=== PATIENT | female | born 1955 | race Caucasian/White ===

== ENCOUNTER 2016-05-04 07:20 | Inpatient (IN) | payer OTHER ==
--- NOTE | 2016-04-13 15:01 | NUR ---
JOINT CAMP: Patient attended Joint Camp at [facility], patient is coming in on 05/04/16 for right total hip replacement. Patient does have a DPOA in place and it is her Kaushik Leung, home # [phone] cell# [phone]. Her will be the one to assist post discharge and he will be the one to transport home on day of discharge. Patient has never has home health or SNF services but has been connected with outpatient therapy. Patient currently has no DME at home.
[~2016-05-04] VITALS: Ht 175.3 cm; Wt 79.0 kg
[2016-05-04] VITALS (21 sets, daily range): BP systolic 88–140; BP diastolic 51–82; PULSE 46–80; RESP 8–21; O2SAT 92–100
[2016-05-04] MEDS: Lactated Ringer's 1,000 ML IV SCH ×4 (05:38→17:05)
[~2016-05-04 07:20] MED LIST: ASPI325T32 PO; CeFAZolin Inj 2 GM in Dextrose 5% 50 ML IV ONE; ENAL10TA PO; MELO-259 PO; Vancomycin 1 Gm/200 mL NS Premix IV ONE; [UNRECOGNIZED DRUG - CODE] PO
--- NOTE | 2016-05-04 07:31 | PCM.HPANE ---
Patient Data Surgeon Admitting Provider: Attending Provider:Abel Lay DO Primary Care Physician:Fei Saab MD Other Provider:Kaleb Sears Anesthesia Reason for Visit Right Hip Arthritis Ht/WT & BMI Height (Feet): 5 Height (Inches): 7 Weight (Kilograms): 77.02 Body Mass Index 26.00 Allergies Coded Allergies: morphine (Verified Allergy, Unknown, room spins, 05/03/16) Past Anesthesia History Anesthesia History: Denies:: Abnormal Airway, Anesthesia Reactions, Difficult Intubation, Fam Anesthesia Reaction Diabetes History Hx Diabetes?: No (gestational diabetes 1995) MRSA MRSA: No Medications Hypertension Medication: Yes Home Meds Incl Beta Zoey: No Reported Medications Guaifen/Phenyleph/Acetaminophn (Tylenol Sinus Severe Caplet)200 Mg-5 Mg-325 Mg Tablet1 Each PO HS 05/03/16 Meloxicam 7.5 Mg Tablet7.5 Mg PO BID 30 Days Ref 0 05/03/16 Enalapril Maleate 10 Mg [id number] Mg PO DAILY Ref 0 05/03/16 Aspirin 325 Mg [id number] Mg PO DAILY #1 BOTTLE 05/03/16 History History of ENT Problems?: No HEENT History: Denies:: Abnormal Airway Cataracts Difficult Intubation Dysphagia Glaucoma Hearing Problem Sinus Problem (post nasal drip allergies) TMJ Hx of Heart Problems?: Yes Cardiovascular History: Positive for:: Heart Murmur Hypertension Denies:: Abdominal Aortic Aneurism Atrial Fibrillation Cardiac Surgery Chest Pain Congestive Heart Failure Coronary Artery Disease Edema Irregular Heartbeat Rheumatic Fever Valvular Heart Disease Hx of Respiratory Problem?: No Respiratory History: Denies:: Asthma COPD Emphysema Oxygen Administration Pneumonia Tuberculosis Use of C-PAP Machine Use of Inhalers / NEBS Hx Neurologic Problems?: No Neurological History: Denies:: Alzheimer's Disease CVA Dementia Dizziness Headaches Multiple Sclerosis Parkinson's Disease Seizures TIA Hx of GI Problems?: Yes Gastrointestinal History: Positive for:: Gastroesphageal Reflux (periodically ) Heartburn Denies:: Cirrhosis Diverticulitis Gall Bladder Disease Gastrointestinal Bleeding Hepatitis Hiatal Hernia Liver Disease Rectal Bleeding Hx of Problems?: No Genitourinary History: Denies:: Kidney Stones Urinary Tract Infection Female Hx: Denies:: Currently Problems with Breasts? Skin History: Denies:: History Skin Disorders? Pressure Ulcers Hx Musculoskeletal Problems?: Yes Musculoskeletal History: Positive for:: Musculoskeletal Trauma (right hip current admission problem) Osteoarthritis Denies:: Back Injury (low back pain) Degenerative Joint Fibromyalgia Joint Replacement Myasthenia Gravis Rheumatoid Arthritis Systemic Lupus Hx of Psycho/Social Problems?: No Psycho Social History: Denies:: Anxiety Hx Depression Hx Surgeries?: Yes (left knee acl, umb hernia, rt rotator cuff) Hx Any Other Health Problems?: Yes Other History: Denies:: Cancer Thyroid Disease History Blood Transfusions: Positive for:: Accept Blood Products? Denies:: Blood Transfusions Hx Diabetes: No (gestational diabetes 1995) Hx Alcohol Use: YesAlcoholic Drinks Per Day: 3 drinks weekly (if that)Hx Substance Use: NoHave You Smoked inLast 12 mo: No Stop/Bang S-Snoring: Do You Snore Loudly: No T-Tired: feel tired, fatigued: No O-Obsered: Observed not breath: No P-Blood Pressure: treated: Yes B- Body Mass Index > 35 kg/m2: No A- Age over 50: Yes N- Neck Large Circumference: No G- Gender Male: No MIKI Total Score: 2 MIKI Risk Assessment: Low Risk, <3 Yes Risk Assessment Category Category 1A: Patient has history of documented sleep apnea, and HAS NOT received any narcotic, sedative or anesthesia administration during this stay. Category 1B: Patient has history of documented sleep apnea, and HAS received any narcotic , sedative or anesthesia administration during this stay Category 2: Patient has SUSPECTED Obstructive Sleep Apnea, and HAS received any narcotic , sedative or anesthesia administration during this stay. Category 3: Patient has SUSPECTED Obstructive Sleep Apnea and HAS NOT received narcotic, sedative or anesthesia administration during this stay. Category 4: Outpatient in Procedural Areas with known sleep apnea or who screen positive for High Risk via the STOP/BANG questionnaire. Exam Exam General Appearance: Alert, Oriented X3, Cooperative, No Acute Distress HEENT/AIRWAY: MP 2 Lungs: Clear to Auscultation, Normal Air Movement Heart: Exam Unremarkable, Regular Rate/Rhythm, No Murmurs/Rubs/Gallops Meds/Labs/Diagnostics Admission Meds Current Medications Lactated Ringer's (Lr) 1,000 ml @ 120 mls/hr [id number] IV Last administered on t 05:38; Start 05/04/16 at 05:00; Stop 05/04/16 at 13:19 Plan Impression Patient chart reviewed, patient interviewed and anesthestic plan with risks, benefits, and alternatives discussed, and informed consent obtained. ASA Physical Status: ASA2 Mod Systemic Disease Anesthetic Plan: SAB Bene/Risks/Altern/Consents: Yes HP Complete Prior to Induction: Yes Chanel Martinez MD May 04, 2016 07:31
[2016-05-04] MEDS ORDERED: Lactated Ringer's 1,000 ML IV SCH (10:06)
[2016-05-04] MEDS ORDERED: Lactated Ringer's 500 ML IV PRN (10:06)
[2016-05-04] MEDS ORDERED: Dexamethasone 4 mg/mL Inj IVPUSH PRN (10:10)
[2016-05-04] MEDS ORDERED: Labetalol 5 mg/mL 4 mL Inj IV PRN (10:10)
[2016-05-04] MEDS ORDERED: fentaNYL-PF 50 mCg/mL 2 mL Inj IVPUSH PRN (10:10)
[2016-05-04] MEDS ORDERED: hydrALAZINE 20 mg/mL Inj IVPUSH PRN (10:10)
[2016-05-04] MEDS ORDERED: MetoCLOpramide 5 mg/mL 2 mL Inj IVPUSH PRN (10:10)
[2016-05-04] MEDS ORDERED: Atropine 0.4 mg/mL Inj IVPUSH PRN (10:10)
[2016-05-04] MEDS ORDERED: Ondansetron 2 mg/mL 2 mL Inj IVPUSH PRN ×2 (10:10→12:20)
[2016-05-04] MEDS ORDERED: HYDROmorphone 1 mg/mL Inj IVPUSH PRN ×3 (10:10→15:20)
[2016-05-04] MEDS ORDERED: Phenylephrine 10,000 mCg/mL Inj IVPUSH PRN (10:10)
[2016-05-04] MEDS ORDERED: EPHEDrine Sulfate 50 mg/mL Inj IVPUSH PRN (10:10)
[2016-05-04] MEDS ORDERED: Ropivacaine-PF 0.5% 30 mL Inj INFILTRATE ONE (10:27)
[2016-05-04] MEDS ORDERED: Polyethylene Glycol (PEG) 17 Gm Powder PO PRN (12:20)
[2016-05-04] MEDS ORDERED: diphenhydrAMINE 25 mg Capsule PO PRN (12:20)
[2016-05-04] MEDS ORDERED: Acetaminophen IV 1,000 MG in IV Premix 1 EACH IV PRN (12:20)
[2016-05-04] MEDS ORDERED: Magnesium Hydroxide 10 mL Oral Concentration PO PRN (12:20)
[2016-05-04] MEDS ORDERED: Phenylephrine/NS-PF 100 mCg/mL 5 mL Syringe IVPUSH ONE (13:21)
--- NOTE | 2016-05-04 13:35 | PCM.ANEP1 ---
Post Anesthesia Phase 1 PACU Phase 1 Assessment Vital Signs Vital Signs Date Time Temp Pulse Resp B/P Pulse Ox O2 Delivery O2 Flow Rate FiO2 05/04/16 13:32 54 9 120/62 100 Nasal Cannula 3 05/04/16 13:26 46 18 104/56 100 Nasal Cannula 3 05/04/16 13:19 69 16 88/54 92 Room Air 05/04/16 13:15 21 95 05/04/16 13:11 66 8 91/51 97 Room Air 05/04/16 13:07 69 8 93/58 100 Room Air 05/04/16 12:41 76 15 119/68 96 05/04/16 12:35 80 15 121/82 97 05/04/16 12:30 36.4 75 17 115/71 95 Room Air 05/04/16 08:06 36.5 77 16 140/72 99 Room Air Anesthetic Administered: SAB Level of Alertness: Awake, talking TOLEDO's with Equal Strength: No Pain: No Nausea or Vomiting: No Oxygen Delivery: Room Air Lungs: Clear to Auscultation, Normal Air Movement Dermatome Level: T12 (Symphysis Pubis) Chanel Martinez MD May 04, 2016 13:35
--- NOTE | 2016-05-04 14:01 | PCM.ANEP2 ---
Post Anesthesia Evaluation ASA/CMS Post Anesthesia VS in Patient's Normal Range?: Yes Resp Stable; Airway Patent?: Yes CV Function & Hydration Stable: Yes Mental Status Recovered?: Yes Pain control Satisfactory?: Yes N/V Control Satisfactory?: Yes Chanel Martinez MD May 04, 2016 14:00
--- NOTE | 2016-05-04 14:05 | DRSVH ---
PROCEDURE: X-RAY PELVIS W/LAT HIP (RT) ([id number]) INDICATIONS: post op TECHNIQUE: AP pelvis with lateral view(s) of the right hip(s). COMPARISON: [facility], , XR PELVIS W LATERAL HIP RT, 04/19/2016, 15:39. FINDINGS: Bones: No fractures or dislocations. Status post right hip arthroplasty with overlying postoperative changes Pelvic ring appears intact. No suspicious bony lesions. Moderate to severe left hip joint degeneration Soft tissues: The visualized bowel gas pattern is normal. No suspicious soft tissue calcifications. IMPRESSION: Expected postoperative appearance Dictated by: Pacheco Rai M.D. on 05/04/2016 at 14:03 Approved by: Pacheco Rai M.D. on 05/04/2016 at 14:04
[2016-05-04] MEDS: HYDROcodone-APAP 7.5-325 mg Tablet PO PRN ×2 (15:00→21:16)
[2016-05-04] MEDS ORDERED: Glycopyrrolate 0.2 mg/mL 5 mL Inj ONE (16:17)
[2016-05-04] MEDS ORDERED: fentaNYL-PF 50 mCg/mL 2 mL Inj ONE (16:17)
[2016-05-04] MEDS ORDERED: Phenylephrine/NS 100 mCg/mL 10 mL Syringe IVPUSH ONE (16:17)
[2016-05-04] MEDS: 0.9% Sodium Chloride 1,000 ML IV SCH (17:03)
[2016-05-04] MEDS: CeFAZolin Inj 2 GM in IV Premix 1 EACH IV SCH (18:12)
--- NOTE | 2016-05-04 19:13 | NUR ---
POST OP PATIENT RECEIVED TO ROOM 1004 S/P RIGHT TOTAL HIP . PT UP WITH PHYSICAL THERAPY TO BSC DID BECAME LIGHT HEADED BUT THIS PASSED AND WAS ABLE TO SIT ON BSC TO VOID. PT UNDERSTANDS HIP PRECAUTIONS. PT DECLINED PAIN MED WHEN OFFERED STATED WILL TAKE SOME LATER THIS EVENING. BULKY DRESSING NOTED TO RIGHT HIP CDI.
[2016-05-04] MEDS: Senna-Docusate 8.6-50 mg Tablet PO SCH (21:16)
--- NOTE | 2016-05-04 23:16 | OP ---
[address] [address] OPERATIVE REPORT PATIENT: HIEN DOLAN : 1955 MR#: [id number] ADMIT: 05/04/2016 JOB ID: [id number] DATE OF SURGERY: 05/04/2016 PREOPERATIVE DIAGNOSIS(ES): Right hip degenerative joint disease. POSTOPERATIVE DIAGNOSIS(ES): Right hip degenerative joint disease. PROCEDURE: Right total hip arthroplasty. SURGEON: Abel Lay DO. CELLULAR PHONE REPAIRER: 1. Juanita Queen PA-C. 2. Hyacinth Isabel DO. INDICATIONS: The patient is a 61-year-old female with right hip severe degenerative arthritis with [id number] arthritis in the hip, who wished to proceed with total hip arthroplasty. We discussed the risks, benefits and possible complications of surgery including, but not limited to, injury to nerves and vessels, infection, bleeding, incomplete relief of symptoms stiffness need for additional procedures, hip dislocation, deep venous thrombosis. All questions were answered. She wished to proceed. A surgical technologist was required for the successful completion of this procedure. PROCEDURE: Patient was brought to the operating room. She was given preoperative spinal anesthetic and preop antibiotics, as well as 1 g TXA prior to the incision. Placed comfortably into the lateral decubitus position. The right hip was sterilely prepped and draped. An incision was made centered over the greater trochanter inline with the femur. Dissection was carefully carried through the subcutaneous tissue. Electrocautery was used for hemostasis. A split was then made in the iliotibial band inline with the skin incision and the Charnley retractor was then placed. A split was then made in the gluteus medius between the junction of the anterior 1/3 and posterior 2/3, and the Hohmann retractors were placed on either side of the femoral neck. Next, an anterior sleeve of tissue was released off of the neck leaving a cuff of tissue for repair. This was taken to a point just distal to vastus tubercle. A small triangular portion of capsule was removed and the hip was then dislocated. A provisional neck cut was made about a fingerbreadth above the level of lesser trochanter and preparation of the femur was begun with a box osteotome. This was then sequentially broached up to a size 9 Biomet Taperloc stem with reduced distal diameter. We then moved to the acetabulum and anterior and posterior acetabular retractors were placed. The pulvinar and labrum were removed and the acetabulum was then reamed sequentially from a 43 up to a 51. We trialed with a 51, which seemed to fit quite nicely. Care was taken to ensure the appropriate abduction and anteversion; and therefore, I elected to place a size 52 Biomet G7 cup. The bony acetabulum was washed and the G7 cup was impacted into position. Care was taken to ensure the appropriate abduction and anteversion, and a single screw was placed superiorly in order to aid with initial fixation. I used a 15 mm screw. We then trialed the hip with the 32 liner and 9 stem, however, I felt that her leg was a bit short and there was excessive shuck; therefore, we went up to a size 10 stem and with 0/32 neck this seemed to work quite nicely, allow for full range of motion, excellent stability and equal leg lengths. The wound was irrigated and the Biomet vitamin E 32 poly was impacted into position, followed by the reduced diameter size 10 Tri-Lock stem and the ceramic 32 + 0 neck the hip was reduced. Had excellent stability and the wound was again irrigated, and then the second gram of TXA was started. The wound was closed with #5 Ethibond to repair the capsule. The gluteus medius was then repaired with mattress #5 Ethibond sutures and #1 Surgilon. The vastus lateralis was repaired with #1 Surgilon. The iliotibial band was repaired with #1 Surgilon and 0-Vicryl. The subcu was closed with 2-0 Vicryl and 2-0 V-Loc, followed by a 3-0 V-Loc for subcuticular. Steri-Strips were used and sterile dressings were applied, including silver dressing. Patient tolerated the procedure well. Blood loss was 100 cc. POSTOP PROTOCOL: Have the patient weightbear to tolerance, use a walker for ambulation. Avoid any active abduction for six weeks. Will plan to use aspirin for DVT prophylaxis and [place] for pain control.
[2016-05-05] MEDS: 0.9% Sodium Chloride 1,000 ML IV SCH ×3 (00:03→18:18)
--- NOTE | 2016-05-05 01:23 | NUR ---
Pain Pt c/o incisional pain rated at a 5 Given IV toradol. Ice in place to incision area on right hip Pt currently resting quietly. No complaint of pain. Care ongoing
[2016-05-05] MEDS: CeFAZolin Inj 2 GM in IV Premix 1 EACH IV SCH (01:31)
[2016-05-05] MEDS: HYDROcodone-APAP 7.5-325 mg Tablet PO PRN ×5 (03:03→21:18)
[2016-05-05 06:02] VITALS: BP 123/66; PULSE 75; RESP 17; O2SAT 96
[2016-05-05 06:31] LABS: BASOPHILS % (AUTO) 0.1 % (0-3); EOSINOPHILS % (AUTO) 0.2 % (0-5); MONOCYTES % (AUTO) 12.5 % (4-12); Mean Corpuscular Hemoglobin 29.9 pg (27.0-35.0); Mean Corpuscular Volume 92.8 fL (81-100); NEUTROPHILS % (AUTO) 70.7 % (40-74); Platelet Count 262 bil/L (150-400)
[2016-05-05] MEDS: Senna-Docusate 8.6-50 mg Tablet PO SCH ×2 (08:10→21:16)
[2016-05-05 09:21] VITALS: BP 121/71; PULSE 81; O2SAT 94
--- NOTE | 2016-05-05 13:02 | NUR ---
Transfer status Patient ambulated with PT and sat up in the chair for approx. 15 minutes She requested pain medication prior to using BSC and ambulating Pain meds were effective in lowering pain level She is able to stand-pivot to BSC using FWW Care ongoing
--- NOTE | 2016-05-05 14:23 | PCM.PNORTH ---
Subjective Date of Service: May 05, 2016 Visit Information: Reason for Visit Right Hip Arthritis Surgery/Surgery Date Post-Op Day # Date of Admission: May 04, 2016 at 16:16 Hospital Day # Subjective Status post day #1 right total hip arthroplasty. Patient states her pain is minimal, she feels like she is doing very well. She was able to work with physical therapy and walk on her own with the walker without much trouble. Postop General: No Complaints, No Shortness of Breath, No Chest Pain Objective Exam Objective Patient is alert and oriented 3. Answering questions appropriately. Sitting up in bed and not in any acute distress today. Dressing is clean dry and intact. Patient able to wiggle toes. Calf is soft and nontender, pulses intact, sensation is full. Vital Signs and I/O Vital Sign - Last Date Time Temp Pulse Resp B/P Pulse Ox O2 Delivery O2 Flow Rate FiO2 05/05/16 09:21 37.3 81 121/71 94 Room Air 05/05/16 06:02 17 05/04/16 15:45 2 Intake and Output 05/04/16 05/04/16 05/05/16 Cumulative From/Thru 15:00 23:00 07:00 05/03/16 12:02 - 05/05/16 06:02 Intake Total 2020 ml 360 ml 1400 ml 3780 ml Output Total 150 ml 200 ml 700 ml 1050 ml Balance 1870 ml 160 ml 700 ml 2730 ml Intake Oral 360 ml 1400 ml 1760 ml IV Total 2020 ml 2020 ml Output Urine Total 200 ml 700 ml 900 ml Estimated Blood Loss 150 ml 150 ml Lab & Micro Results Laboratory Tests Test 05/05/16 05:10 White Blood Count 8.3th/mm3 (3.8-10.1) Red Blood Count 3.48mil/mm3 (3.90-5.20) Hemoglobin 10.4g/dL (12.0-15.6) Hematocrit 32.3% (35.0-46.0) Mean Corpuscular Volume 92.8fL (81-100) Mean Corpuscular Hemoglobin 29.9pg (27.0-35.0) Mean Corpuscular Hemoglobin Concent 32.2% (32.0-37.0) Red Cell Distribution Width 14.4% (12.3-15.4) Platelet Count 262bil/L (150-400) Neutrophils (%) (Auto) 70.7% (40-74) Lymphocytes (%) (Auto) 16.4% (14-46) Monocytes (%) (Auto) 12.5% (4-12) Eosinophils (%) (Auto) 0.2% (0-5) Basophils (%) (Auto) 0.1% (0-3) Sodium Level 141mEq/L (134-144) Potassium Level 4.0mEq/L (3.5-5.2) Chloride Level 104mEq/L (97-108) Carbon Dioxide Level 26mmol/L (18-29) Blood Urea Nitrogen 12mg/dL (8-27) Creatinine 0.62mg/dL (0.57-1.00) Estimat Glomerular Filtration Rate 139mL/min (>59) Glucose Level 137mg/dL (60-99) Calcium Level 8.3mg/dL (8.5-10.1) Result Diagram: 05/05/16 0510 05/05/16 0510 Assessment & Plan Impression Status post day #1 right total hip arthroplasty. Patient progressing very well. Problems: Plan Patient will take aspirin 325 mg by mouth twice a day for 6 weeks for DVT prophylaxis. Patient will continue to work with physical therapy while in the hospital and is weightbearing as tolerated with a wheeled walker. Patient assets home and will need to accomplish this before discharge. Patient will continue to take [place] 5/325 mg tablets when necessary for pain. Patient is doing very well at this point. Anticipate that it is very possible that she should be able to discharge to home as soon as tomorrow. Leoncio Lindsay PA-C May 05, 2016 14:23
--- NOTE | 2016-05-05 15:09 | NUR ---
Social Work: Initial Assessment/Readiness for Discharge: Data: EMR reviewed. Pt is a 62 year old female admitted 05/04/16 for right hip arthritis per H&P. SW met with pt and Manfred [phone] at bedside to discuss discharge planning, SW role explained. PT worked with patient and recommends home with outpt PT. Pt aware of this recommendation and is going to set up services. Pt states that her will be providing transport home at discharge. No anticipated discharge needs. Sw will continue to follow if needs arise. Assessment: Pt who is independent at baseline. Plan: Pt to discharge home when medically stable with to transport via POV. No anticipated discharge needs. SW will continue to follow if needs arise. ESSENCE Loza
[2016-05-05 15:45] VITALS: BP 119/72; PULSE 85; RESP 16; O2SAT 98
--- NOTE | 2016-05-05 17:03 | NUR ---
Mobility Patient up with physical therapy progressing well. Patient ambulated out into hallway ans sat up in chair briefly approx 15 minutes or so. Po pain Meds fairly effective for pain control.
[2016-05-05 20:29] VITALS: BP 126/70; PULSE 77; RESP 16; O2SAT 99
[2016-05-06] MEDS: HYDROcodone-APAP 7.5-325 mg Tablet PO PRN ×4 (01:06→19:31)
[2016-05-06] MEDS: 0.9% Sodium Chloride 1,000 ML IV SCH ×2 (04:18→12:07)
--- NOTE | 2016-05-06 05:09 | NUR ---
Pain Pain managed effectively, patient able to get rest between administrations. Denies CP, SOB, and abdominal discomfort at this time. A&O able to make needs known. Bed locked, call light within reach, and intentional rounding.
[2016-05-06 05:50] LABS: BASOPHILS % (AUTO) 0.2 % (0-3); EOSINOPHILS % (AUTO) 0.3 % (0-5); MONOCYTES % (AUTO) 12.4 % (4-12); Mean Corpuscular Hemoglobin 29.4 pg (27.0-35.0); Mean Corpuscular Volume 92.4 fL (81-100); Platelet Count 251 bil/L (150-400)
[2016-05-06 06:38] VITALS: BP 139/80; PULSE 72; RESP 16; O2SAT 96
--- NOTE | 2016-05-06 08:30 | PCM.PNORTH ---
Subjective Date of Service: May 06, 2016 Visit Information: Reason for Visit Right Hip Arthritis Surgery/Surgery Date right total hip arthroplasty 05/04/2016 Post-Op Day # 2 Date of Admission: May 04, 2016 at 16:16 Hospital Day # Subjective Patient reports pain is well-controlled with Elma. She is progressing slowly but steadily with physical therapy. She has not yet done stairs. Postop General: No Complaints, No Shortness of Breath, No Chest Pain Objective Exam Objective Patient is seen lying in bed Vital Signs and I/O Vital Sign - Last Date Time Temp Pulse Resp B/P Pulse Ox O2 Delivery O2 Flow Rate FiO2 05/06/16 06:38 36.9 72 16 139/80 96 Room Air 05/04/16 15:45 2 Intake and Output 05/05/16 05/05/16 05/06/16 Cumulative From/Thru 15:00 23:00 07:00 05/03/16 12:02 - 05/06/16 06:38 Intake Total 1640 ml 1200 ml 6620 ml Output Total 900 ml 1650 ml 3600 ml Balance 740 ml -450 ml 3020 ml Intake Oral 1640 ml 1200 ml 4600 ml IV Total 2020 ml Output Urine Total 900 ml 1650 ml 3450 ml Estimated Blood Loss 150 ml # Voids 3 3 # Bowel Movements 0 0 Lab & Micro Results Laboratory Tests Test 05/06/16 05:22 White Blood Count 9.2th/mm3 (3.8-10.1) Red Blood Count 3.40mil/mm3 (3.90-5.20) Hemoglobin 10.0g/dL (12.0-15.6) Hematocrit 31.4% (35.0-46.0) Mean Corpuscular Volume 92.4fL (81-100) Mean Corpuscular Hemoglobin 29.4pg (27.0-35.0) Mean Corpuscular Hemoglobin Concent 31.8% (32.0-37.0) Red Cell Distribution Width 14.2% (12.3-15.4) Platelet Count 251bil/L (150-400) Neutrophils (%) (Auto) 69.0% (40-74) Lymphocytes (%) (Auto) 17.9% (14-46) Monocytes (%) (Auto) 12.4% (4-12) Eosinophils (%) (Auto) 0.3% (0-5) Basophils (%) (Auto) 0.2% (0-3) Sodium Level 140mEq/L (134-144) Potassium Level 4.2mEq/L (3.5-5.2) Chloride Level 104mEq/L (97-108) Carbon Dioxide Level 26mmol/L (18-29) Blood Urea Nitrogen 10mg/dL (8-27) Creatinine 0.55mg/dL (0.57-1.00) Estimat Glomerular Filtration Rate 160mL/min (>59) Glucose Level 124mg/dL (60-99) Calcium Level 8.2mg/dL (8.5-10.1) Result Diagram: 05/06/1652105/06/16521 General Appearance: Alert, Oriented X3, Cooperative, No Acute Distress Extremities: Distal Pulses Palpable, No Compartment Syndrom Noted, Thigh & Calf Soft/Nontender Postop Sensory Motor: Distal Motor Intact, NVI Distally SURGICAL WOUND : Wound Location/Description Lateral right hip: Surgical dressing is removed. Steri-Strips are intact. There is no erythema or drainage present. Wound is cleansed with hydrogen peroxide and a Silverlon adhesive dressing is applied. Activity: Activity per PT, Ambulate with PT Catheters: None Assessment & Plan Impression Status post right total hip arthroplasty POD #2 Problems: Plan Weightbearing: weightbearing as tolerated with walker with x-rays DVT prophylaxis: aspirin 325 mg twice a day 6 weeks Continue Physical therapy for transfers, progressive ambulation, therapeutic exercise Hip precaution positions to prevent dislocation: No flexing forward past 90, no crossing the legs at the knee, no active abduction for 6 weeks after surgery Patient has compression stockings and we will put them on at discharge Wound care: Dressing changed today by MCKENZIE to a Silverlon dressing Discharge plan: Discharge home tomorrow. No physical therapy as an outpatient. Follow-up plan: In [address] [facility] with MCKENZIE for wound check and at 6 weeks with Pain Management: Elma, Toradol VTE Prophylaxis: SCDs, Other (aspirin 325 mg twice a day) Resuscitation Status: CPR: Attempt Resuscitation [place] CreekJuanita Simmons PA-C May 06, 2016 08:29
[2016-05-06 08:47] VITALS: BP_SYST 114; BP_SYST 137; BP_DIAS 62; BP_DIAS 74; PULSE 78; PULSE 82; RESP 20; O2SAT 93; O2SAT 95
[2016-05-06 08:50] VITALS: BP 122/74; PULSE 94; RESP 16; O2SAT 95
[2016-05-06] MEDS: Senna-Docusate 8.6-50 mg Tablet PO SCH ×2 (08:57→19:30)
--- NOTE | 2016-05-06 09:48 | NUR ---
Evaluation completed. Please go to "Notes" then click on "Assessments and Notes" (bottom left corner of screen). Then select appropriate discipline tab on top of screen.
--- NOTE | 2016-05-06 12:56 | NUR ---
Social Work Readiness for Discharge: SW spoke to patient at bedside to discuss discharge plan. Patient states plan as home with who to provide support and care. Patient states she to follow up at [facility] for outpt therapy at discharge. No other anticipated discharge needs identified at this time. SW to follow. PLAN: Home with and outpt therapy follow up. No anticipated discharge needs at this time. SW to follow. Wolfgang LOWRY
[2016-05-06 13:29] VITALS: BP 128/77; PULSE 85; RESP 20; O2SAT 98
--- NOTE | 2016-05-06 13:57 | NUR ---
Mobility Pt does not feel comfortable enough to use the stairs to get into her home Anticipated discharge is 05/07 PT and OT working on strength and pt is using FWW to ambulate to restroom Pain is being managed with medication, ice, and position change Care ongoing
--- NOTE | 2016-05-06 16:05 | NUR ---
ACTIVITY/PAIN Patient rates pain 1/10 prior to ambulating in hallway with therapy in am. After therapy session, patient reported 7/10 pain to R hip. Medicated with toradol IV x1 with good effect. Rated pain 2/10 within 45 mins. Medicated with 1 tab norco 7.5/325mg 1 hr prior to next therapy session. Pain level on reassessment was 1/10. Ice pack to R hip. continue to monitor.
[2016-05-06 18:09] VITALS: BP 117/70; PULSE 73; RESP 16; O2SAT 99
[2016-05-06 20:30] VITALS: BP 132/72; PULSE 82; RESP 17; O2SAT 97
[2016-05-07] MEDS: 0.9% Sodium Chloride 1,000 ML IV SCH ×2 (00:18→10:18)
[2016-05-07] MEDS: HYDROcodone-APAP 7.5-325 mg Tablet PO PRN ×3 (00:41→12:12)
--- NOTE | 2016-05-07 01:58 | NUR ---
ACTIVITY/PAIN CONTROL: Pt. has been up to the bathroom able to ambulate the FWW and one person SBA, voiding, no BM this shift so far. Pt. request only one [place] every 4-5 hr for pain control. Tolerating activity well. A & O, vss. On going care.
[2016-05-07 06:00] VITALS: BP 144/79; PULSE 86; RESP 16; O2SAT 96
--- NOTE | 2016-05-07 08:34 | PCM.PNORTH ---
Subjective Date of Service: May 07, 2016 Visit Information: Reason for Visit Right Hip Arthritis Surgery/Surgery Date right total hip arthroplasty 05/04/2016 Post-Op Day # 3 Date of Admission: May 04, 2016 at 16:16 Hospital Day # Subjective Patient had a little heartburn last night after eating spicy meal. She had a bowel movement this morning reports that she is feeling better. When asked if she felt she might need nausea medicine for home she stated that she would not need it. Usually just a couple of times will relieve her heartburn. Postop General: No Shortness of Breath, No Chest Pain Pain Management: PO Objective Exam Objective Patient is seen sitting up in a chair Vital Signs and I/O Vital Sign - Last Date Time Temp Pulse Resp B/P Pulse Ox O2 Delivery O2 Flow Rate FiO2 05/07/16 06:00 37.0 86 16 144/79 96 Room Air 05/04/16 15:45 2 Intake and Output 05/06/16 05/06/16 05/07/16 Cumulative From/Thru 15:00 23:00 07:00 05/03/16 12:02 - 05/07/16 06:00 Intake Total 750 ml 1320 ml 8690 ml Output Total 350 ml 1000 ml 4950 ml Balance 400 ml 320 ml 3740 ml Intake Oral 750 ml 1320 ml 6670 ml IV Total 0 ml 2020 ml Output Urine Total 350 ml 1000 ml 4800 ml Estimated Blood Loss 150 ml # Voids 3 # Bowel Movements 0 0 Result Diagram: 05/06/16 0522 05/06/16 0522 General Appearance: Alert, Oriented X3, Cooperative, No Acute Distress Extremities: Distal Pulses Palpable, No Compartment Syndrom Noted, Thigh & Calf Soft/Nontender, Tenderness/Swelling Noted (right thigh as expected) Postop Sensory Motor: Distal Motor Intact, NVI Distally SURGICAL WOUND : Wound Location/Description Lateral right hip: Dressing is clean dry and intact Activity: Activity per PT, Ambulate with PT Catheters: None Assessment & Plan Impression Status post right total hip arthroplasty Problems: Plan Weightbearing: weightbearing as tolerated with walker with x-rays DVT prophylaxis: aspirin 325 mg twice a day 6 weeks Continue Physical therapy for transfers, progressive ambulation, therapeutic exercise Hip precaution positions to prevent dislocation: No flexing forward past 90, no crossing the legs at the knee, no active abduction for 6 weeks after surgery Patient has compression stockings and we will put them on at discharge Wound care: Change dressing every 1-2 days if needed with Silverlon dressing The patient may shower if the wound has no drainage present x 24 hours. Wound may be uncovered to shower. Let soap and water run over the wound, pat dry and apply a new dressing. Discharge plan: Discharge home today after morning therapy. No physical therapy as an outpatient until after 6 week postop visit. Follow-up plan: In 2 weeks at [facility] with MCKENZIE for wound check and at 6 weeks with , with x-rays. Pain Management: [place] 7.5/325 mg, Toradol VTE Prophylaxis: SCDs, Other Resuscitation Status: CPR: Attempt Resuscitation [place] PA-C May 07, 2016 08:34
[2016-05-07] MEDS: Senna-Docusate 8.6-50 mg Tablet PO SCH (08:35)
--- NOTE | 2016-05-07 09:01 | PCM.DIORTH ---
Ortho Discharge Instruction Date of Service: May 07, 2016 Dates of Hospitalization Date of Hospital Admission May 04, 2016 at 16:16 Providers Admitting Physician: Abel Lay DO Primary Care Physician: Fei Saab MD Attending Physician: Abel Lay DO Activity Discharge Activity-General: Balance rest and activity, Elevate extremity ( every afternoon), May drive in (1 month) Right Lower Extremity: Weight Bearing as tolerated Discharge Assist Device: Front Wheeled Walker Dressing and Incisional Care Discharge Dressing Care: Keep dressing clean, dry & intact, Other (Do not remove steri-strips) Discharge Hygiene: May shower (see instructions below), DO NOT soak incision under water, NO bathtub, hot tub or whirlpool Additional Instructions Discharge Instructions Weightbearing: weightbearing as tolerated with walker with x-rays DVT prophylaxis: aspirin 325 mg twice a day 6 weeks Hip precaution positions to prevent dislocation: No flexing forward past 90, no crossing the legs at the knee, no active abduction for 6 weeks after surgery Wear compression stocking on surgical leg for 1 month Wound care: Change dressing every 1-2 days if needed with Silverlon dressing The patient may shower if the wound has no drainage present x 24 hours. Wound may be uncovered to shower. Let soap and water run over the wound, pat dry and apply a new dressing. No physical therapy as an outpatient until after 6 week postop visit. Follow Up Plan Follow Up Plan Follow-up plan: In 2 weeks at [facility] with MCKENZIE for wound check and at 6 weeks with , with x-rays. Juanita Queen PA-C May 07, 2016 09:01
[2016-05-07] MEDS ORDERED: Hydrocodone/Acetaminophen PO (09:04)
[2016-05-07] MEDS ORDERED: Aspirin-Expunged Drug, Do Not Renew! PO (09:04)
--- NOTE | 2016-05-07 09:07 | PCM.DC.ORT ---
Discharge Summary Date of Service: May 07, 2016 Date of Hospital Admission: May 04, 2016 at 16:16 Date of Surgery: May 04, 2016 Date of Discharge: May 07, 2016 Reason for Hospitalization: Right hip arthritis Procedures Performed: Right total hip arthroplasty Hospital Course: The patient was admitted to the hospital on 05/04/2016 and underwent the above procedure. Antibiotic prophylaxis consisting of Ancef and vancomycin. The surgeon was Dr. Lay. Patient tolerated the procedure well and was transferred to recovery room in stable condition. Patient had physical therapy to work on ambulation and transfers. Weightbearing as tolerated with walker. Pain was managed with [place], and Toradol. DVT prophylaxis: Aspirin 325 mg twice a day. Patient had some heartburn on the evening of postop day 2 after eating spicy meal. This was relieved with Tums. She had a bowel movement on postop day 3. Patient progressed well with physical therapy and on POD-3 was discharged home. Follow-up: at [facility] 2 weeks postop for wound check and at [address] Lay with x-ray Diagnosis at Time of Discharge Status post right total hip arthroplasty Problems: Disposition: Discharged home in stable condition with her to assist in her care Discharge Instructions: Weightbearing: weightbearing as tolerated with walker with x-rays DVT prophylaxis: aspirin 325 mg twice a day 6 weeks Hip precaution positions to prevent dislocation: No flexing forward past 90, no crossing the legs at the knee, no active abduction for 6 weeks after surgery Wear compression stocking on surgical leg for 1 month Wound care: Change dressing every 1-2 days if needed with Silverlon dressing The patient may shower if the wound has no drainage present x 24 hours. Wound may be uncovered to shower. Let soap and water run over the wound, pat dry and apply a new dressing. No physical therapy as an outpatient until after 6 week postop visit. ([Aspirin-Expunged Drug, Do Not Renew!]) 325 MG TABLET 325 MG PO BID ([Hydrocodone/Acetaminophen]) 1 TABLET TABLET 1 TABLET PO Q4H PRN PRN For Moderate Pain Enalapril Maleate (Enalapril Maleate) 10 Mg Tablet 10 MG PO DAILY Guaifen/Phenyleph/Acetaminophn (Tylenol Sinus Severe Caplet) 200 Mg-5 Mg-325 Mg Tablet 1 EACH PO HS Juanita Queen PA-C May 07, 2016 09:07
--- NOTE | 2016-05-07 10:59 | NUR ---
Social Work Discharge: Plan remains as home with who to provide support and care. Patient states she to follow up at [facility] for outpt therapy at discharge. No other anticipated discharge needs identified at this time. SW to follow. PLAN: Home with and outpt therapy follow up. No anticipated discharge needs at this time. SW to follow. [place] LOWRY
--- NOTE | 2016-05-07 13:07 | NUR ---
DISCHARGE Patient ambulated into bathroom with FWW SBA. Gait steady. Maintains hip precautions. Drsg to R hip C/D/I. Gave extra dressing for patient to take home. SL IV was removed from Left wrist, catheter intact. Reviewed paperwork with patient, including follow up appointments and gave hard Rx to patient. Patient verbalized understanding. Got dressed with minimal assistance and transferred into wheelchair and was taken out to personal vehicle.
== END 2016-05-07 12:25 | disposition home or self-care (01) | DRG 470 ==
LOC: SAS 07:20 → OSC 16:16
PROVIDERS: ADMIT Orthopaedic Surgery; ATTEND Orthopaedic Surgery
PROC: 0SR904A Replacement of Right Hip Joint with Ceramic on Polyethylene Synthetic Substitute, Uncemented, Open Approach (ICD-10-PCS; principal; 2016-05-04 09:45)
DX: M16.11 Unilateral primary osteoarthritis, right hip (principal); I10 Essential (primary) hypertension